=== PATIENT | male | born 1945 | race Two or more races ===

== ENCOUNTER → 2023-10-26 10:29 | Outpatient (REF) | payer MEDICARE, BC, OTHER, SELFPAY | LOC: HO.SL 10:29 | PROVIDERS: PCP Internal Medicine; Visit Provider Psychiatry & Neurology Neurology | DX: G47.33 Obstructive sleep apnea (adult) (pediatric) (principal) | CPT/HCPCS: 95806 ==

== ENCOUNTER → 2023-10-26 19:00 | Outpatient (BNV) | payer MEDICARE, OTHER, SELFPAY | PROVIDERS: PCP Internal Medicine; Visit Provider Internal Medicine | DX: R06.83 Snoring (principal) | CPT/HCPCS: 95806 ==